=== PATIENT | female | born 1995 | race Caucasian/White ===

== ENCOUNTER 2017-04-03 20:09 | Emergency (ER) | payer BC ==
[~2017-04-03] VITALS: Ht 167.6 cm; Wt 77.3 kg
[2017-04-03 20:14] VITALS: BP 123/64; TEMP 98.2
[2017-04-03] MEDS ORDERED: BIRTH CONTROL PO (20:17)
[2017-04-03 20:44] LABS: BASO % 0.2 % (0.0-2.0); EOS # 0.1 (0.0-0.7); EOS % 0.9 % (0-4.0); GRAN # 8.2 (1.4-6.5); GRAN % 68.9 % (42.2-75.2); LYMPH # 2.5 (1.2-3.4); LYMPH % 21.2 % (20.0-51.0); MEAN CELL VOLUME 85 fl (80.0-95.0); MEAN CORPUSCULAR HGB CONC 32 g/dl (33.0-37.0); MEAN PLATELET VOLUME 11.4 fl (7.4-10.4); MONO % 8.5 % (1.7-9.3); PLATELET COUNT 261 K/mm3 (130-400); WHITE BLOOD COUNT 11.9 K/mm3 (4.8-10.8)
[2017-04-03 21:11] LABS: HEMOGLOBIN 11.2 g/dl (12.0-15.0); MEAN CORPUSCULAR HEMOGLOBIN 27 pg (26.0-32.0)
[2017-04-03 21:15] LABS: ADJUSTED CALCIUM 9.9 mg/dL (8.4-10.2); BILIRUBIN,TOTAL 0.5 mg/dL (0.0-1.0); CALCIUM 9.9 mg/dL (8.4-10.2); CREATININE, serum 0.88 mg/dL (0.52-1.25); TOTAL PROTEIN 7.1 gm/dL (6.4-8.2)
[2017-04-03] MEDS ORDERED: NORCO 325 MG-51 TAB PO (21:50)
[2017-04-03 22:00] VITALS: PULSE 71
== END 2017-04-03 22:01 | disposition home or self-care (01) ==
LOC: COL.ER 20:09
PROVIDERS: Emergency Medicine
DX: J40 Bronchitis, not specified as acute or chronic (principal); R07.89 Other chest pain